=== PATIENT | female | born 1965 | race Caucasian/White ===

== ENCOUNTER 2018-12-06 00:43 | Observation (INO) | payer OTHER ==
--- OUTSIDE RECORDS SUMMARY | 2018-12-06 00:45 | XMS REPORT ---
:1965 Author Organization [facility] Address [address] [place] [address] Care Team Providers Name Role Phone Unavailable Unavailable Unavailable Problems This patient has no known problems. Allergies, Adverse Reactions, Alerts This patient has no known allergies or adverse reactions. Medications This patient has no known medications. Results Test Description Test Time Test Comments Text Results Atomic Results Result Comments SCR MAMM BILATERAL MICHAEL 2018-11-19 15:17:50 - SCR MAMM BILATERAL MICHAEL CAD CAD DIGITAL DIGITALBILATERAL FIRST EVER DIGITAL SCREENING MAMMOGRAM 3D/2D WITH CAD: 11/13/2018CLINICAL: Asymptomatic. Digital breast tomosynthesis was performed in addition to routine CC and MLO views. Current mammographic images were evaluated by either a [employer] M-Vu or a [employer] ImageChecker CAD (computer aided detection system). No prior exams were available for comparison. This is a baseline exam.The tissue of both breasts is predominantly fatty. There are benign calcifications in both breasts. There also is a benign-appearing focal asymmetry in the posterolateral, left breast, 8-9 cm from the nipple. No suspicious mass, architectural distortion, malignant type calcification, or lymph node abnormality detected. IMPRESSION: BENIGNThere is no mammographic evidence of malignancy. Resume annual screening mammography in one year. Anatoly Gunderson M.D. rb/:11/19/2018 15:17:50 Attending Technologist: Selma Walton MM, [facility] [employer] MammographyImaging Technologist: Zamzam Mcelroy MM, [facility] [place] [employer] Mammographyletter sent: BIRADS 1-2 Normal Mammogram BI-RADS: 2 Benign
[2018-12-06] MEDS ORDERED: LIDOCAINE VISCOUS 2% SOLN 15 ML UDC ONE (01:18)
[2018-12-06] MEDS ORDERED: MAGNE/ALUM HYDROXD 30 ML UCUP ONE (01:18)
[2018-12-06 01:20] LABS: Absolute Lymphocytes (CBC) 2.3 K/uL (0.7-4.9); Absolute Monocytes 0.6 K/uL (0.1-1.3); Absolute Neutrophil 3.6 K/uL (1.8-8.0); Basophils % 0.7 % (0-1.3); Eosinophils % 1.8 % (0-4.4); Hematocrit 41.4 % (36.0-45.0); Lymphocytes % 34.4 % (15.3-44.8); MPV 8.1 fL (7.6-11.3); Monocytes % 8.9 % (3.3-12.3); RBC Red Blood Cell Count 4.74 M/uL (3.86-4.86)
[2018-12-06 01:39] LABS: ALT/SGPT 59 U/L (12-78); AST/SGOT 38 U/L (15-37); Albumin 3.5 g/dL (3.4-5.0); Alkaline Phosphatase 73 U/L (45-117); BUN Blood Urea Nitrogen 17 mg/dL (7-18); Bicarbonate 25 mmol/L (21-32); Bilirubin Direct < 0.1 mg/dL (0-0.2); Bilirubin Total 0.2 mg/dL (0.2-1.0); Glucose Level 101 mg/dL (74-106); NT PRO-BNP 244 pg/mL (<125); Potassium 3.9 mmol/L (3.5-5.1); Protein, Total 7.7 g/dL (6.4-8.2); Sodium Level 137 mmol/L (136-145); Troponin (Emerg Dept Use Only) < 0.02 ng/mL (0.0-0.045)
--- NOTE | 2018-12-06 02:49 | ER ---
Nurse's Notes [facility] Name: Xuan Peacock Age: 53 yrs Sex: Female : 1965 Arrival Date: 12/06/2018 Time: 00:45 Bed 20 Private MD: Diagnosis: Chest pain, unspecified Presentation: 12/06 00:48 Presenting complaint: Patient states: that at 0000 she woke up with chest pain that fc felt like indigestion along with shortness of breath and nausea. States that she feels like she has chest pressure now. Transition of care: patient was not received from another setting of care. Onset of symptoms was December 06, 2018 at 00:00. Risk Assessment: Do you want to hurt yourself or someone else? Patient reports no desire to harm self or others. Initial Sepsis Screen: Does the patient meet any 2 criteria? No. Patient's initial sepsis screen is negative. Does the patient have a suspected source of infection? No. Patient's initial sepsis screen is negative. Care prior to arrival: Medication(s) given: ASA, 81 mg, x 4, at 0015. 00:48 Method Of Arrival: Ambulatory fc 00:48 Acuity: MARTHA 3 fc Historical: - Allergies: 01:07 No Known Allergies; fc - Home Meds: 01:07 Unable to obtain [Active]; fc - PMHx: 01:07 Hypertension; fc - PSHx: 01:07 Cholecystectomy; Ear surg; fc - Immunization history:: Last tetanus immunization: unknown. - Social history:: Smoking status: Patient/guardian denies using tobacco. - Family history:: not pertinent. - Ebola Screening: : Patient negative for fever greater than or equal to 101.5 degrees Fahrenheit, and additional compatible Ebola Virus Disease symptoms Patient denies exposure to infectious person Patient denies travel to an Ebola-affected area in the 21 days before illness onset. - Hospitalizations: : No recent hospitalization is reported. Screenin:48 Abuse screen: Denies threats or abuse. Nutritional screening: No deficits noted. fc Tuberculosis screening: No symptoms or risk factors identified. Fall Risk None identified. Assessment: 01:19 General: Appears in no apparent distress. uncomfortable, Behavior is calm, cooperative, tl2 appropriate for age. Pain: Complains of pain in chest Pain does not radiate. Pain currently is 8 out of 10 on a pain scale. Quality of pain is described as pressure, Pain began 1 hour ago. Neuro: Level of Consciousness is awake, alert, obeys commands, Oriented to person, place, time, situation. Cardiovascular: Chest pain is described as diffuse, quality is pressure, is located in anterior substernal area began 1 hour prior to arrival. Respiratory: Airway is patent Respiratory effort is even, unlabored, Respiratory pattern is regular, symmetrical. GI: Reports nausea. : No signs and/or symptoms were reported regarding the genitourinary system. Derm: Skin is pink, warm \T\ dry. 01:45 Reassessment: Patient appears in no apparent distress at this time. No changes from tl2 previously documented assessment. Patient and/or family updated on plan of care and expected duration. Pain level reassessed. Patient is alert, oriented x 3, equal unlabored respirations, skin warm/dry/pink. awaiting lab results. Vital Signs: 00:48 BP 157 / 80; Pulse 77; Resp 18; Temp 97.6(O); Pulse Ox 98% on R/A; Weight 90.72 kg (R); fc Height 5 ft. 3 in. (160.02 cm) (R); Pain 8/10; 01:45 BP 158 / 81; Pulse 71; Resp 18; Pulse Ox 100% on R/A; tl2 02:57 BP 122 / 65; Pulse 79; Resp 13; Pulse Ox 98% on R/A; tl2 03:58 BP 117 / 79; Pulse 63; Resp 12; Pulse Ox 98% on R/A; tl2 00:48 Body Mass Index 35.43 (90.72 kg, 160.02 cm) Vitals: 03:58 Cardiac Rhythm Assessment Sinus rhythm. tl2 ED Course: 00:45 Patient arrived in ED. tl2 00:45 Olegario Leon MD is Attending Physician. rn 00:48 Arm band placed on Patient placed in an exam room, on a stretcher. fc 00:48 Patient has correct armband on for positive identification. Placed in gown. Bed in low fc position. Call light in reach. radiation monitor on. Pulse ox on. NIBP on. 00:48 No provider procedures requiring assistance completed. fc 01:04 Triage completed. fc 01:06 Adrienne Ortez RN is Primary Nurse. tl2 01:19 Inserted saline lock: 20 gauge in right antecubital area, using aseptic technique. tl2 Blood collected. 01:31 X-ray completed. Portable x-ray completed in exam room. Patient tolerated procedure sg4 well. 01:31 XRAY Chest (1 view) In Process Unspecified. EDMS 02:48 Lenard Santos MD is Hospitalizing Provider. rn 05:50 Patient admitted, IV remains in place. tl2 Administered Medications: 01:19 Drug: GI Cocktail without - (Maalox Suspension 30 ml, Lidocaine Liquid 2 % 15 tl2 ml) Route: PO; 01:44 Follow up: Response: Pain is unchanged, physician notified tl2 02:57 Drug: Nitroglycerin 0.4 mg Route: Sublingual; tl2 03:00 Follow up: Response: No adverse reaction; Pain is decreased tl2 Outcome: 02:48 Decision to Hospitalize by Provider. rn 05:49 Admitted to ER Hold. Please see [facility] for further documentation. tl2 05:49 Condition: stable 05:49 Discharge instructions given to patient, Instructed on the need for admit. 08:03 Patient left the ED. em Signatures: Dispatcher [employer] EDID Gina Bacon RN RN Jose Bradley, ORTHODONTIST ASSISTANT ORTHODONTIST ASSISTANT em Olegario Leon MD MD rn Knox, Taylor, RN RN tl2 Judith Archibald sg4
--- NOTE | 2018-12-06 02:49 | EDPHYS ---
Physician Documentation [facility] Name: Xuan Peacock Age: 53 yrs Sex: Female : 1965 Arrival Date: 12/06/2018 Time: 00:45 Bed 20 Private MD: ED Physician Olegario Leon HPI: 12/06 00:54 This 53 yrs old Female presents to ER via Unassigned with complaints of chest rn pain. 00:54 The patient or guardian reports chest pain that is located primarily in the substernal rn area. Onset: yesterday. The pain does not radiate. The chest pain is described as a heaviness, a pressure. Modifying factors: The symptoms are alleviated by nothing. the symptoms are aggravated by nothing. Severity of pain: At its worst the pain was moderate in the emergency department the pain is unchanged. The patient has not experienced similar symptoms in the past. Reports chest pain, feels like indigestion, pressure, no radiation, no fever/cough, began approx 20 hours ago, intermittent, went away and then returned about an hour ago, assoc with nausea and sob. . Historical: - Allergies: 01:07 No Known Allergies; fc - Home Meds: 01:07 Unable to obtain [Active]; fc - PMHx: 01:07 Hypertension; fc - PSHx: 01:07 Cholecystectomy; Ear surg; fc - Immunization history:: Last tetanus immunization: unknown. - Social history:: Smoking status: Patient/guardian denies using tobacco. - Family history:: not pertinent. - Ebola Screening: : Patient negative for fever greater than or equal to 101.5 degrees Fahrenheit, and additional compatible Ebola Virus Disease symptoms Patient denies exposure to infectious person Patient denies travel to an Ebola-affected area in the 21 days before illness onset. - Hospitalizations: : No recent hospitalization is reported. ROS: 00:54 Constitutional: Negative for fever, chills, and weight loss, Eyes: Negative for injury, rn pain, redness, and discharge, Cardiovascular: Negative for palpitations, and edema, Respiratory: Negative for cough, wheezing, and pleuritic chest pain, Abdomen/GI: Negative for abdominal pain, diarrhea, and constipation, MS/Extremity: Negative for injury and deformity, Skin: Negative for injury, rash, and discoloration, Neuro: Negative for headache, weakness, numbness, tingling, and seizure. Exam: 00:54 Constitutional: This is a well developed, well nourished patient who is awake, alert, rn appears anxious Head/Face: Normocephalic, atraumatic. Eyes: Pupils equal round and reactive to light, extra-ocular motions intact. Cardiovascular: Regular rate and rhythm with a normal S1 and S2. No gallops, murmurs, or rubs. No JVD. No pulse deficits. Respiratory: Lungs have equal breath sounds bilaterally, clear to auscultation Abdomen/GI: soft, non-tender Back: No spinal tenderness. No costovertebral tenderness. Full range of motion. MS/ Extremity: Pulses equal, no cyanosis. Neurovascular intact. Full, normal range of motion. Equal circumference. Neuro: Awake and alert, GCS 15, oriented to person, place, time, and situation. Cranial nerves II-XII grossly intact. Motor strength 5/5 in all extremities. Sensory grossly intact. Vital Signs: 00:48 BP 157 / 80; Pulse 77; Resp 18; Temp 97.6(O); Pulse Ox 98% on R/A; Weight 90.72 kg (R); fc Height 5 ft. 3 in. (160.02 cm) (R); Pain 8/10; 01:45 BP 158 / 81; Pulse 71; Resp 18; Pulse Ox 100% on R/A; tl2 02:57 BP 122 / 65; Pulse 79; Resp 13; Pulse Ox 98% on R/A; tl2 03:58 BP 117 / 79; Pulse 63; Resp 12; Pulse Ox 98% on R/A; tl2 00:48 Body Mass Index 35.43 (90.72 kg, 160.02 cm) MDM: 00:46 Patient medically screened. rn 00:53 The patient was not given aspirin in the Emergency Department. Patient reports taking rn aspirin within the past 24 hours. 02:47 Differential diagnosis: acute myocardial infarction, acute pericarditis, rn costochondritis, esophagitis, gastritis, gastroesophageal reflux disease (GERD), pleurisy, pneumonia, pneumothorax, stable angina, unstable angina. Data reviewed: vital signs, nurses notes, lab test result(s), EKG, radiologic studies, plain films, and as a result, I will admit patient. Counseling: I had a detailed discussion with the patient and/or guardian regarding: the historical points, exam findings, and any diagnostic results supporting the discharge/admit diagnosis, lab results, radiology results, the need for further work-up and treatment in the hospital. Response to treatment: the patient's symptoms have mildly improved after treatment, and as a result, I will admit patient. Admission orders: after a detailed discussion of the patient's condition and case, the admit orders are written by me. 12/06 00:52 Order name: Basic Metabolic Panel; Complete Time: rn 12/06 00:52 Order name: CBC with Diff; Complete Time: rn 12/06 00:52 Order name: LFT's; Complete Time: rn 12/06 00:52 Order name: NT PRO-BNP; Complete Time: rn 12/06 00:52 Order name: Troponin (emerg Dept Use Only); Complete Time: rn 12/06 05:18 Order name: Lipid Profile; Complete Time: 05:59 EDMS 12/06 00:52 Order name: XRAY Chest (1 view) rn 12/06 00:52 Order name: EKG; Complete Time: 00:54 rn 12/06 00:52 Order name: Cardiac monitoring; Complete Time: : rn 12/06 00:52 Order name: EKG - Nurse/Tech; Complete Time: : rn 12/06 00:52 Order name: IV Saline Lock; Complete Time: : rn 12/06 00:52 Order name: Labs collected and sent; Complete Time: : rn 12/06 00:52 Order name: O2 Per Protocol; Complete Time: rn 12/06 00:52 Order name: O2 Sat Monitoring; Complete Time: 01:06 rn Administered Medications: 01:19 Drug: GI Cocktail without - (Maalox Suspension 30 ml, Lidocaine Liquid 2 % 15 tl2 ml) Route: PO; 01:44 Follow up: Response: Pain is unchanged, physician notified tl2 02:57 Drug: Nitroglycerin 0.4 mg Route: Sublingual; tl2 03:00 Follow up: Response: No adverse reaction; Pain is decreased tl2 Disposition: 12/06/18 02:48 Hospitalization ordered by Lenard Santos for Observation. Preliminary diagnosis is Chest pain, unspecified. - Bed requested for Telemetry/MedSurg (observation). - Status is Observation. em - Condition is Stable. - Problem is new. - Symptoms have improved. UTI on Admission? No Signatures: Dispatcher [employer] Camille Hu, RN RN kl Gina Bacon RN RN fc Jose Diaz, ELEMENTARY SCIENCE TEACHER ELEMENTARY SCIENCE TEACHER em Olegario Leon MD MD rn Knox, Taylor RN RN tl2 Corrections: (The following items were deleted from the chart) 03:57 02:48 Hospitalization Ordered by Lenard Santos MD for Observation. Preliminary kl diagnosis is Chest pain, unspecified. Bed requested for Telemetry/MedSurg (observation). Status is Observation. Condition is Stable. Problem is new. Symptoms have improved. UTI on Admission? No. rn 04:20 03:57 12/06/2018 02:48 Hospitalization Ordered by Lenard Santos MD for Observation. kl Preliminary diagnosis is Chest pain, unspecified. Bed requested for Telemetry/MedSurg (observation). Status is Observation. Condition is Stable. Problem is new. Symptoms have improved. UTI on Admission? No. kl 04:21 04:20 12/06/2018 02:48 Hospitalization Ordered by Lenard Santos MD for Observation. Preliminary diagnosis is Chest pain, unspecified. Bed requested for Telemetry/MedSurg (observation). Status is Observation. Condition is Stable. Problem is new. Symptoms have improved. UTI on Admission? No. kl 06:42 04:21 12/06/2018 02:48 Hospitalization Ordered by Lenard Santos MD for Observation. kl Preliminary diagnosis is Chest pain, unspecified. Bed requested for [facility] ER HOLD. Status is Observation. Condition is Stable. Problem is new. Symptoms have improved. UTI on Admission? No. fc 08:03 06:42 12/06/2018 02:48 Hospitalization Ordered by Lenard Santos MD for Observation. em Preliminary diagnosis is Chest pain, unspecified. Bed requested for Telemetry/MedSurg (observation). Status is Observation. Condition is Stable. Problem is new. Symptoms have improved. UTI on Admission? No. kl
[2018-12-06] MEDS ORDERED: NITROGLYCERIN 0.4 MG/TAB SL ONE (03:05)
--- NOTE | 2018-12-06 03:30 | P.HP ---
Certification for Inpatient Patient admitted to: Observation With expected LOS: <2 Midnights Practitioner: I am a practitioner with admitting privileges, knowledge of patient current condition, hospital course, and medical plan of care. Services: Services provided to patient in accordance with Admission requirements found in Title 42 Section 412.3 of the Code of Federal Regulations Patient History Date of Service: 12/06/18 Reason for admission: chest pain History of Present Illness: Ms Peacock is an 53 years old woman with history of HTN, who had an episoe of chest pain yesterday morning, she describe a heavy feeling in substernal area, without radiation, 6/10 of intensity, associated with SOB, nausea and diaphoresis, lasting for few hours, relieving by itself. She assumed the pain as gastric reflux. Last night, she has another episode of chest pain, with similar characteristics, but at this time she came to ED for evaluation. The pain subsided in ED after nitro SL administration. Initial trop I is negative, EKG shows SR with long QT interval, without ST-T abnormalities. At my encounter the patient was chest pain free. Allergies No Known Allergies Allergy (Unverified 01/26/17 17:30) Home medications list reviewed: Yes - Past Medical/Surgical History -: HTN -: Cholecystectomy -: ear surgery - Family History Mother -: Heart disease - Social History Smoking Status: Former smoker Alcohol use: No CD- Drugs: No Place of Residence: Home Review of Systems 10-point ROS is otherwise unremarkable Physical Examination - Physical Exam General: Alert, In no apparent distress HEENT: Atraumatic, PERRLA, Mucous membr. moist/pink, EOMI, Sclerae nonicteric Neck: Supple, 2+ carotid pulse no bruit, No LAD, Without JVD or thyroid abnormality Respiratory: Clear to auscultation bilaterally, Normal air movement Cardiovascular: Regular rate/rhythm, Normal S1 S2 Gastrointestinal: Normal bowel sounds, No tenderness Musculoskeletal: No tenderness Integumentary: No rashes Neurological: Normal gait, Normal speech, Normal strength at 5/5 x4 extr, Normal tone, Normal affect Lymphatics: No axilla or inguinal lymphadenopathy - Studies Laboratory Data (last 24 hrs) 12/06/18 01:13: WBC 6.6, Hgb 13.6, Hct 41.4, Plt Count 319 12/06/18 01:13: Sodium 137, Potassium 3.9, BUN 17, Creatinine 0.79, Glucose 101 , Total Bilirubin 0.2, AST 38 H, ALT 59, Alkaline Phosphatase 73 Assessment and Plan - Problems (Diagnosis) (1) Chest pain Current Visit: Yes Status: Acute Qualifiers: Chest pain type: precordial pain Qualified Code(s): R07.2 - Precordial pain (2) HTN (hypertension) Current Visit: Yes Status: Acute Qualifiers: Hypertension type: essential hypertension Qualified Code(s): I10 - Essential (primary) hypertension - Plan The patient will be admitted to the hospital due to typical chest pain relieving with Nitro. Will order ECHO, full dose Lovenox, ASA, statins, consult Cardiology team. - Advance Directives Does patient have a Living Will: No Does patient have a Durable POA for Healthcare: No - Code Status/Comfort Care Code Status Assessed: Yes Code Status: Full Code
[2018-12-06] MEDS ORDERED: ACETAMINOPHEN 500 MG TAB PO PRN (04:25)
[2018-12-06] MEDS ORDERED: ONDANSETRON 4 MG/2 ML VIAL IV PRN (04:25)
[2018-12-06] MEDS: NITROGLYCERIN 0.4 MG/TAB SL PRN ×3 (04:43→08:30)
[2018-12-06 05:45] VITALS: BMI 35.4
[2018-12-06] MEDS: ASPIRIN 81 MG CHEWABLE TABLET PO SCH (08:12)
[2018-12-06] MEDS: ENOXAPARIN 80 MG/0.8 ML SQ SCH ×2 (08:13→21:32)
[2018-12-06] MEDS ORDERED: INFLUENZA VACCINE (for 3y+) 0.5 ML DOSE IMVAC ONE (09:00)
--- NOTE | 2018-12-06 11:59 | RAD REPORT ---
EXAM DESCRIPTION: RAD - Chest Single View - 12/06/2018 1:31 am CLINICAL HISTORY: CHEST PAIN Chest pain. COMPARISON: Chest Single View dated 11/01/2016 FINDINGS: Portable technique limits examination quality. The lungs are grossly clear. The heart is normal in size. No displaced fractures. IMPRESSION: No acute intrathoracic process suspected.
--- NOTE | 2018-12-06 16:27 | EKG ---
Test Date: 2018-12-06 Test Time: 00:56:15 Grain Trader: KARY MEASUREMENT RESULTS: Intervals: Rate: 73 [place]: 146 QRSD: 74 QT: 438 QTc: 482 [place]: P: 45 [place]: 146 QRS: 32 T: 39 INTERPRETIVE STATEMENTS: Normal sinus rhythm Prolonged QT Abnormal ECG Compared to ECG 11/01/2016 20:30:21 Prolonged QT interval now present Electronically Signed On 12-06-18 16:27:00 [employer] by Daniel Rothman
--- NOTE | 2018-12-06 16:29 | CON ---
CARDIOLOGY CONSULT History Of Present Illness: Ms. Peacock is 53. She came to the hospital because of nausea, vomiting, and chest pain. She had a spell about a month ago, seemed to get over it; another one yesterday, got over it; and then when it recurred around midnight, she came to the ER. Since being in the ER and i n our hospital, she has had normal enzymes, normal EKGs, and the symptoms have resolved. The patient has never had myocardial infarction, stroke, or vascular disease before. She is treated for hyperte nsion. She does not have diabetes, dyslipidemia, any history of tobacco use. Home Medications: Amlodipine. No other meds. Physical Examination: General: She is alert, oriented, pleasant, 5 feet 3 inches, 200 pounds, non-centripetal obesity. HEENT: Normal. Lungs: Clear. Heart: Normal. Abdomen: Soft. Extremities: Normal. Laboratory Data: Reveals a fasting blood sugar of 101, an HDL cholesterol of 72, LDL cholesterol of 87. Assessment/plan: I think the patient is very low risk patient for having heart disease. Since she i s admitted, we will do an echocardiogram and stress test. If those are normal, she can be discharged. MARTIN Voice ID: [id number] Report ID: [id number]
[2018-12-06] MEDS: AMLODIPINE 5 MG TAB PO SCH (18:43)
[2018-12-06] MEDS ORDERED: ATORVASTATIN 80 MG TAB PO SCH (21:00)
--- NOTE | 2018-12-06 21:15 | PN ---
Date of Progress Note: 12/06/2018 Subjective: The patient is seen and examined. Chart reviewed and case discussed with RN. The patie nt states her chest pain is improved. No other complaints. Medications: List reviewed. Physical Examination: Vital Signs: Temperature 97.9, heart rate 58, blood pressure 126/69, respirations 18, O2 97% on room air. General: Awake, alert, oriented x3, no acute distress. Obese female. CV: S1, S2. Regular rate and rhythm. Peripheral pulses present. Respiratory: Moving air well bilaterally. No wheezing or stridor. Gastrointestinal: Abdomen is soft, nontender, nondistended. Positive bowel sounds. Extremities: No clubbing, cyanosis, or edema. Neurologic: Nonfocal. Laboratory Data: Sodium 137, potassium 3.9, chloride 106, CO2 25, BUN 17, creatinine 0.79, glucose 1 01, calcium 8.5. Troponin less than 0.02, triglycerides 59, and cholesterol 171, LDL 87, HDL 72. WB C 6.6, H and H 13.6, 41.4, platelets 319. Chest x-ray, personally reviewed, shows no acute intrathor acic process identified. Assessment And Plan: A 53-year-old female with: 1.Chest pain. We will continue with chest pain guidelines. Stress test scheduled for the morning. Appreciate Dr. Rothman' input. 2.Essential hypertension, stable. 3.Obesity, BMI is greater than 30 due to excess calories. 4.Gastrointestinal and deep venous thrombosis prophylaxis with PPI and Lovenox. PLAN: Continue to monitor. Follow up with stress test in a.m. /DAI Voice ID: [id number] Report ID: [id number]
[2018-12-06 22:49] LABS: Urine Appearance CLEAR; Urine Bilirubin NEGATIVE (NEG); Urine Blood NEGATIVE (NEG); Urine Color YELLOW; Urine Glucose NEGATIVE (NEG); Urine Protein NEGATIVE (NEG); Urine Specific Gravity <=1.005 (1.005-1.030); Urine Urobilinogen 0.2 mg/dL (0.2-1.0)
[2018-12-06 22:55] LABS: Urine Microscopic Reflex NO UMIC
[2018-12-07 03:56] VITALS: O2SAT 94
[2018-12-07] MEDS ORDERED: REGADENOSON 0.4 MG/5 ML SYR IV ONE (07:40)
[2018-12-07] MEDS: ENOXAPARIN 80 MG/0.8 ML SQ SCH (08:13)
[2018-12-07] MEDS: ASPIRIN 81 MG CHEWABLE TABLET PO SCH (08:13)
[2018-12-07] MEDS: AMLODIPINE 5 MG TAB PO SCH (08:14)
[2018-12-07] MEDS ORDERED: AMLODIPINE 5 MG TAB PO SCH (09:00)
--- NOTE | 2018-12-07 14:07 | RAD REPORT ---
EXAM DESCRIPTION: NM - Rest Stress Cardiac Imaging - 12/07/2018 2:02 pm CLINICAL HISTORY: Chest pain. COMPARISON: None. TECHNIQUE: The patient was administered approximately 10mCi of Tc 99m Sestamibi prior to resting SPE CT imaging of the heart. The patient was then administered approximately 30 mCi of Tc 99m Sestamibi f ollowing exercise or pharmacologic stress. Multiplanar SPECT images were reviewed. FINDINGS: There is uniformity of radiotracer activity involving the entire left ventricular myocard ium. The left ventricular ejection fraction equals 58% IMPRESSION: Negative for a myocardial perfusion defect
[2018-12-07 14:40] VITALS: BP 132/60; TEMP 97.3
--- NOTE | 2018-12-07 15:12 | ECHO ---
HEIGHT: 5 ft 3 in WEIGHT: 200 lb 0.054 oz DATE OF STUDY: 12/07/[address]: Lenard Narayan MD 2-DIMENSIONAL: YES M.MODE: YES DOPPLER: YES COLOR FLOW: YES TDS: NO PORTABLE: NO DEFINITY: NO BUBBLE STUDY: NO DIAGNOSIS: CHEST PAIN CARDIAC HISTORY: CATHERIZATION: NO SURGERY: NO PROSTHETIC VALVE: NO PACEMAKER: NO MEASUREMENTS (cm) DIASTOLIC (NORMALS) SYSTOLIC (NORMALS) IVSd 1.0 (0.6-1.2) LA Diam 3.4 (1.9-4.0) LVEF 59% LVIDd 4.7 (3.5-5.7) LVIDs 3.2 (2.0-3.5) %FS 31% LVPWd 1.1 (0.6-1.2) Ao Diam 2.9 (2.0-3.7) 2 DIMENSIONAL ASSESSMENT: RIGHT ATRIUM: NORMAL LEFT ATRIUM: NORMAL RIGHT VENTRICLE: NORMAL LEFT VENTRICLE: NORMAL TRICUSPID VALVE: NORMAL MITRAL VALVE: NORMAL PULMONIC VALVE: NORMAL AORTIC VALVE: NORMAL PERICARDIAL EFFUSION: NONE AORTIC ROOT: NORMAL LEFT VENTRICULAR WALL MOTION: NORMAL DOPPLER/COLOR FLOW: MILD MITRAL REGURGITATION. COMMENTS: NORMAL 2D ECHOCARDIOGRAM. MILD MITRAL REGURGITATION. TECHNOLOGIST: Atiya TARIQ
--- NOTE | 2018-12-07 15:25 | TREADPHA ---
DX: CHEST PAIN Date of Study: 12/07/2018 Ht: 5 3 Wt: 200 lb 0.054 oz Consulting Physician: DIANA MEDICATIONS: TYLENOL, NORVASC, LIPITOR, LOVENOX, NITROSTAT HISTORY: 53 YEAR OLD FEMALE WITH COMPLAINTS OF CHEST PAIN. HISTORY OF HYPERTENSION, NON SMOKER, NON DRINKER. PHYSICIAL EXAMINATION: RESTING B.P.: 148/76 RESTING H.R.: 73 RESTING EKG: SINUS. LEFT VENTRICULAR HYPERTROPHY, OTHERWISE NORMAL. PROTOCOL: LEXISCAN EXERCISE TIME: 3:30 B.P. AT PEAK STRESS: 132/67 IMPRESSION: LEXISCAN INJECTED. CARDIOLITE INJECTED PER PROTOCOL. SEE NUCLEAR MEDICINE REPORT. NO SUPRAVENTRICULAR TACHYCARDIA. NO VENTRICULAR TACHYCARDIA. NO PREMATURE ATRIAL COMPLEXES. NO PREMATURE VENTRICULAR COMPLEXES. PATIENT REPORTED CHEST PRESSURE 6/10 PRIOR RO PROCEDURE. PRESSURE STAYED THE SAME THROUGHOUT PROCEDURE. NON DIAGNOSTIC EKG DURING LEXISCAN INJECTED.
--- NOTE | 2018-12-08 05:41 | DS ---
Date of Discharge: 12/07/2018 Consultants: Dr. Rothman with Cardiology. Procedures: Cardiac stress test on 12/07/2018. Cardiac stress test was negative for any myocardial perfusion defects. Discharge Diagnoses: 1. Atypical chest pain. Acute coronary syndrome ruled out. 2. Essential hypertension, stable. 3. Obesity, body mass index greater than 30. Hospital Course: The patient is a 53-year-old female with past medical history of hypertension, comes in with chest pain. The patient was admitted to rule out acute coronary syndrome. Cardiac enzymes and EKG were normal. Did not show any acute ST elevation. The patient was seen by Cardiology, Dr. Rothman, and recommended cardiac stress testing which was negative. Did not show any myocardial perfusion defects. Her ejection fraction was 58%. The patient's symptoms resolved. She was then cleared for discharge and was sent home in a stable condition. Medications: As per medication reconciliation list. Followup: Follow up with primary care physician in 2 to 3 days. Follow up with guide setter, Dr. Rothman, in 2 weeks. Return to ER for worsening condition. Diet: Heart healthy. Activity: As tolerated. Medications: As per medication reconciliation list. Physical Examination: General: Awake, alert, and oriented x3. No acute distress. CV: S1, S2. No murmurs. Respiratory: Moving air well bilaterally. Abdomen: Abdomen is soft, nontender, nondistended. Positive bowel sounds. Extremities: No clubbing, cyanosis, or edema. Neurologic: Nonfocal. SA/MODL Voice ID: [id number] Report ID: [id number] MORIAH
== END 2018-12-07 16:30 | disposition home or self-care (01) ==
LOC: ER 00:43 → ERHOLD 03:17 → 2ND 07:50
PROVIDERS: ADMIT Internal Medicine; ATTEND Internal Medicine
DX: R07.89 Other chest pain (principal); I10 Essential (primary) hypertension; E66.9 Obesity, unspecified; Z68.35 Body mass index [BMI] 35.0-35.9, adult
CPT/HCPCS: 36415; 71045; 78452; 80048; 80061; 80076; 81003; 83880; 84484; 85025; 93005; 93017; 93306; 99285; A9500; G0378; J1650; J2785

== ENCOUNTER 2019-07-27 08:20 | Day surgery (SDC) | payer OTHER ==
--- OUTSIDE RECORDS SUMMARY | 2019-07-27 08:22 | XMS REPORT ---
:1965 [facility] Address [address] [place] [address] Care Team Providers Name Role Phone Unavailable [...] mammographic images were evaluated by either a [employer] M-Vu or a [employer] ImageChecker CAD (computer aided detection system). No [...] 15:17:50 Attending Technologist: Selma Walton MM, [employer] MammographyImaging Technologist: Zamzam Mcelroy MM, [facility] [place] [employer] Mammographyletter sent: BIRADS 1-2 Normal Mammogram BI-RADS: 2 Benign
--- OUTSIDE RECORDS SUMMARY | 2019-07-27 08:22 | XMS REPORT | Summary of Care ---
:1965 Author Organization [facility] - Health Address [address] [place] [id number] Care Team Providers Name Role Phone Pcp, Patient Does Not Have A Primary Care Provider Encounter Details Date Type Department Care Team Description 07/03/2019 Orders Only [facility] Doctor Unassigned, No [address] [facility] [place] [address] [place] [id number] Allergies No Known Allergiesdocumented as of this encounter (statuses as of 07/03/2019) Medications Medication Sig Dispensed Refills Start Date End Date Status promethazine-codeine Take 5 mL by 120 mL 0 11/09/2017 Active 6.25-10 mg/5 mL syrup mouth 4 (four) times daily as needed for Cough. acetaminophen-codeine Take 1 tablet 16 tablet 0 08/02/2018 Active 300-30 mg tablet by mouth every 8 (eight) hours as needed for Pain (scale 4-6). cyclobenzaprine 10 mg Take 1 tablet 16 tablet 0 08/02/2018 Active tablet by mouth 3 (three) times daily as needed for Muscle Spasms (pain). erythromycin 5 mg/gram Place 0.5 1 g 0 02/03/2019 Active (0.5 %) ophthalmic Inches in left ointmentIndications: eye at bedtime. Left-sided Willard's palsy dextran 70-hypromellose Place 1 Drop in 30 mL 0 02/03/2019 Active (TEARS NATURALE II) left eye 4 ophthalmic (four) times solutionIndications: daily as needed Left-sided Willard's palsy (Dryness). documented as of this encounter (statuses as of 07/03/2019) Active Problems No known active problemsdocumented as of this encounter (statuses as of 2018) Social History Tobacco Use Types Packs/Day Years Used Date Never Assessed Sex Assigned at Date Recorded Not on file Job Start Date Occupation Industry Not on file Not on file Not on file Travel History Travel Start Travel End No recent travel history available. documented as of this encounter Last Filed Vital Signs Not on filedocumented in this encounter Plan of Treatment Health Maintenance Due Date Last Done Comments DTaP,Tdap,and Td Vaccines (1 - 1986 Tdap) PAP SMEAR 1988 MAMMOGRAM 2007 COLONOSCOPY 2017 Zoster Recombinant Vaccine 2017 (SHINGRIX) (1 of 2) INFLUENZA VACCINE 07/25/2019 PNEUMOCOCCAL 0-64 YEARS COMBINED Aged Out No longer eligible based on SERIES patient's age to complete this topic documented as of this encounter Procedures Procedure Name Priority Date/Time Associated Diagnosis Comments CONSENT/REFUSAL FOR Routine 07/03/2019 3:45 PM CDT DIAGNOSIS AND TREATMENT documented in this encounter Results Not on filedocumented in this encounter Insurance Payer Benefit Plan / Subscriber ID Effective Dates Phone Address Type Group HIM [id number] 2018-Present PPO [id number] ACTED RACTED documented as of this encounter
--- OUTSIDE RECORDS SUMMARY | 2019-07-27 08:23 | XMS REPORT | Summary of Care ---
:1965 Author Organization [facility] - Health Address [address] [place] [address] Care Team Providers Name Role Phone Pcp, Patient Does Not Have A Primary Care Provider Reason for Visit Reason Comments Transition Of Care Encounter Details Date Type Department Care Team Description 07/07/2019 Transition of Care [facility] Kathryn Cao, Transition Of Care [facility]- RN [address] [id number] Allergies No Known Allergiesdocumented as of this encounter (statuses as of 07/07/2019) Medications Medication Sig Dispensed Refills Start Date [...] daily as needed Left-sided Willard's palsy (Dryness). SERTraline 50 mg tablet Take 50 mg by 0 Active mouth daily. omeprazole 20 mg capsule Take 20 mg by 0 Active mouth daily. amLODIPine 10 mg tablet Take 10 mg by 0 Active mouth daily. lisinopril 5 mg tablet Take 5 mg by 0 Active mouth daily. documented as of this encounter (statuses as of 07/07/2019) Active Problems Problem Noted Date Pancreatitis, acute 07/03/2019 Obesity (BMI 30-39.9) 07/03/2019 documented as of this encounter (statuses as of 07/07/2019) Social History Tobacco Use Types Packs/Day Years Used Date Former Smoker Smokeless Tobacco: Never Used Comments: Stopped smoking 2012 Sex Assigned at Date Recorded Not on [...] this topic documented as of this encounter Results Not on filedocumented in this encounter Insurance Payer Benefit Plan / Subscriber ID Effective Dates Phone Address Type Group HIM [id number] 2018-Present PPO [id number] ACTED RACTED documented as of this encounter
--- OUTSIDE RECORDS SUMMARY | 2019-07-27 08:23 | XMS REPORT | Summary of Care ---
:1965 Author Organization [facility] - [facility] Address [address] [place] [address] Care Team Providers Name Role Phone Pcp, Patient Does Not Have A Primary Care Provider Reason for Referral (Routine) Status Reason Specialty Diagnoses / Procedures Referred By Referred To Contact Contact New Request Diagnoses Idiopathic acute pancreatitis without infection or necrosis Sadiq Shaver, Syst , Procedures Discharge Follow-up: PCP REFERRING/PCP PROV NOT IN SYST; 1 Week MBBS Referring/Pcp [address] [place] [address] [place] [address] MRI/CAT Scan (STAT) Status Reason Specialty Diagnoses / Referred By Referred To Procedures Contact Contact New Request Diagnostic Diagnoses Epigastric abdominal pain Feroz Diaz, Radiology Procedures CT ABDOMEN PELVIS W CONTRAST [address] [place], [place] [id number] MRI/CAT Scan (STAT) Status Reason Specialty Diagnoses / Referred By Referred To Procedures Contact Contact New Request Diagnostic Diagnoses Epigastric abdominal pain Feroz Diaz, Radiology Procedures CT ABDOMEN PELVIS W CONTRAST [address] [place] [id number] Reason for Visit Reason Comments Epigastric Pain Auth/Cert Status Reason Specialty Diagnoses / Referred By Referred To Procedures Contact Contact Emergency Medicine [facility] Emergency Dept [address] [place] [address] [place] [address] Encounter Details Date Type Department Care Team Description 07/03/2019 - Hospital Encounter [facility] Feroz Wong MD [address] [facility] [id number] [place], [place] [id number] Pancreatitis, acute 07/06/2019 Surgery Unit Sadiq hSaver MBBS [address] [place], [place] [id number] [address] [place] [address] [place], [place] [id number] Allergies No Known Allergiesdocumented as of this encounter (statuses as of 07/06/2019) Medications Medication Sig Dispensed Refills Start Date [...] (four) times solutionIndications: daily as needed Left-sided Wilalrd's palsy (Dryness). SERTraline 50 mg tablet Take 50 mg by 0 Active mouth daily. omeprazole 20 mg capsule Take 20 mg by 0 Active mouth daily. amLODIPine 10 mg tablet Take 10 mg by 0 Active mouth daily. lisinopril 5 mg tablet Take 5 mg by 0 Active mouth daily. documented as of this encounter (statuses as of 07/06/2019) Active Problems Problem Noted Date Pancreatitis, acute 07/03/2019 Obesity (BMI 30-39.9) 07/03/2019 documented as of this encounter (statuses as of 07/06/2019) Social History Tobacco Use Types Packs/Day Years Used Date Former Smoker Smokeless Tobacco: Never Used Comments: Stopped smoking 2012 Sex Assigned at Date Recorded Not on file Job Start Date Occupation Industry Not on file Not on file Not on file Travel History Travel Start Travel End No recent travel history available. documented as of this encounter Last Filed Vital Signs Vital Sign Reading Time Taken Comments Blood Pressure 119/75 07/06/2019 11:24 132/75 rt arm pt AM CDT asked if i would ck in this arm since iv wa Pulse 71 07/06/2019 11:24 AM CDT Temperature 36.8 C (98.2 F) 07/06/2019 11:24 AM CDT Respiratory Rate 16 07/06/2019 11:24 AM CDT Oxygen Saturation 96% 07/06/2019 11:24 AM CDT Inhaled Oxygen - - Concentration Weight 88.5 kg (195 lb) 07/03/2019 7:46 PM CDT Height 160 cm (5' 3") 07/03/2019 7:46 PM CDT Body Mass Index 34.54 07/03/2019 7:46 PM CDT documented in this encounter Discharge Summaries Sadiq Shaver MBBS - 07/06/2019 2:42 PM CDT Discharge Summary ADMIT DATE: 07/03/2019 DISCHARGE DATE: 07/06/19 REASON FOR ADMISSION Acute pancreatitis FINAL DIAGNOSIS:Acute pancreatitis SIGNIFICANT LAB/X-RAYS: Lab results: CBC BMP PT/INR WBC (10*3/L) Date Value 07/04/2019 6.82 NA (mmol/L) Date Value 07/05/2019 138 No results found for: PT RBC (10*6/L) Date Value 07/04/2019 4.05 K (mmol/L) Date Value 07/05/2019 3.9 No results found for: PTINR PLT (10*3/L) Date Value 07/04/2019 265 CALCIUM (mg/dL) Date Value 07/05/2019 8.5 (L) HGB (g/dL) Date Value 07/04/2019 11.3 (L) CL (mmol/L) Date Value 07/05/2019 107 aPTT HCT (%) Date Value 07/04/2019 36.8 BUN (mg/dL) Date Value 07/05/2019 9 No results found for: APTTPAT CREATININE (mg/dL) Date Value 07/05/2019 0.60 GLUCOSE (mg/dL) Date Value 07/05/2019 66 (L) CO2 TOTAL (mmol/L) Date Value 07/05/2019 21 (L) X-ray results: Ct Abdomen Pelvis W Contrast Result Date: 07/03/2019 Acute interstitial pancreatitis without evidence of complication. I, Quang Thompson MD., have reviewed this study and agree with the above report. Physical Exam: Constitutional: normal body habitus Eyes: EOMI PERRLA ENT: OP clear. Nasal septum in midline ears normal Respiratory: No chest wall tenderness, equal and symmetric expansion b/l CTA b/l Cardiovascular : Regular rate and rhythm S1S2 normal. No murmur. No cyanosis clubbing or edema GI: abd Soft ND NT no organomegaly HOSPITAL COURSE: 53 year-old with acute pancreatitis, idiopathic. Resolved with bowel rest and IV fluids and tolerating diet and d/tyler home Discussed with the patient and all questioned fully answered. She will call me if any problems arise. Time spent on discharge 35 minutes DISCHARGE CONDITION: fair COGNITIVE STATUS: cognitively intact DIET: regular ACTIVITY: as tolerated DISCHARGE MEDICATIONS: Current Discharge Medication List CONTINUE these medications which have NOT CHANGED Details amLODIPine (NORVASC) 10 mg Take 10 mg by mouth daily. lisinopril (PRINIVIL,ZESTRIL) 5 mg Take 5 mg by mouth daily. omeprazole (PRILOSEC) 20 mg Take 20 mg by mouth daily. SERTraline (ZOLOFT) 50 mg Take 50 mg by mouth daily. dextran 70-hypromellose (TEARS RENEWED) [address] 1 Drop in left eye 4 (four ) times daily as needed (Dryness). Qty: 30 mL, Refills: 0 Associated Diagnoses: Left-sided Willard's palsy erythromycin (ILOTYCIN) 0.[address] 0.5 Inches in left eye at bedtime. Qty: 1 g, Refills: 0 Associated Diagnoses: Left-sided Willard's palsy acetaminophen-codeine (TYLENOL #3) 1 tablet Take 1 tablet by mouth every 8 ( eight) hours as needed for Pain (scale 4-6). Qty: 16 tablet, Refills: 0 cyclobenzaprine (FLEXERIL) 10 mg Take 10 mg by mouth 3 (three) times daily as needed for Muscle Spasms (pain). Qty: 16 tablet, Refills: 0 promethazine-codeine (PHENERGAN with CODEINE) 5 mL Take 5 mL by mouth 4 (four) times daily as neededfor Cough. Qty: 120 mL, Refills: 0 DISCHARGE: home self care FOLLOW-UP APPOINTMENT: Please call paging services at [phone] to contact DOLLY Meredith with any questions. documented in this encounter Discharge Instructions Gi Borja RN - 07/06/2019 9:59 AM CDTCall for follow up appointment Jean Claude Carreno [facility] Address: [address] [id number] Address: [address] [place] [address] Electronically signed by Gi Salazar RN at 2018 9:59 AM CDT Additional InstructionsKaleigh Dobson RN - 07/05/2019 Patient Discharge Instructions Discharge date: 07/05/2019 Discharge Orders Discharge Follow-up: PCP REFERRING/PCP PROV NOT IN SYST; 1 Week To PCP: REFERRING/PCP PROV NOT IN SYST [[id number]] Patient's Preferred Location: [place] Discharge Disposition: HOME, (AHR) When (Patients with risk for unplanned readmission score over 16 or those noted as Hospital Dependent should follow up within 7 days with PCP or primary DX specialist): 1 Week Risk of Unplanned Readmission:( Score greater than 16 indicates high risk) 9 Regular Diet; Texture: Regular. Texture Regular. Diabetic: No Discharge Condition - Discharge Condition: FAIR Discharge Activity Discharge Activity: As Tolerated No VTE Prophylaxis given- Patient low risk for VTE; Not ordered during hospitalization Take Home Medications These are medications ordered for you by your healthcare provider. Do not take any other medications or supplements unless advised by your healthcare provider. Current Discharge Medication List CONTINUE these medications which have NOT CHANGED Details amLODIPine 10 mg tablet Take 10 mg by mouth daily. lisinopril 5 mg tablet Take 5 mg by mouth daily. omeprazole 20 mg capsule Take 20 mg by mouth daily. SERTraline 50 mg tablet Take 50 mg by mouth daily. dextran 70-hypromellose (TEARS NATURALE II) ophthalmic solution Place 1 Drop in left eye 4 (four) times daily as needed (Dryness). Qty: 30 mL, Refills: 0 Associated Diagnoses: Left-sided Willard's palsy erythromycin 5 mg/gram (0.5 %) ophthalmic ointment Place 0.5 Inches in left eye at bedtime. Qty: 1 g, Refills: 0 Associated Diagnoses: Left-sided Willard's palsy acetaminophen-codeine 300-30 mg tablet Take 1 tablet by mouth every 8 (eight) hours as needed for Pain (scale 4-6). Qty: 16 tablet, Refills: 0 cyclobenzaprine 10 mg tablet Take 1 tablet by mouth 3 (three) times daily as needed for Muscle Spasms (pain). Qty: 16 tablet, Refills: 0 promethazine-codeine 6.25-10 mg/5 mL syrup Take 5 mL by mouth 4 (four) times daily as needed for Cough. Qty: 120 mL, Refills: 0 Follow-up appointments: Please follow up with your primary care provider in 1 week. Call the office to schedule your appointment. For questions regarding follow-up instructions call the [employer] at [phone] or If you experience any of the following symptoms such as abdominal pain, nausea, vomiting, please follow up with your primary care provider or return to the ER For worsening symptoms/changing condition/problems or questions: Non-emergency/urgent: Call the [employer] Hotline at or Emergency: Go to the closest emergency room or call [phone] If you receive the patient satisfaction survey by mail please complete and return and let us know how we are doing. TOBACCO AVOIDANCE Exposure to tobacco either from smoking or from second hand (environmental) smoke or smokeless tobacco (snuff) is damaging to your health. This information is to encourage everyone to avoid tobacco exposure. It is recommended that you: ? If you smoke or use smokeless tobacco, we encourage you to quit. ? If you have already quit smoking, continue your good work! ? If you do not smoke or use smokeless tobacco, do not start. ? Avoid secondhand smoke. Additional Resources You may want to contact these organizations for further information on smoking and how to quit. [place] [employer], http://www.lungusa.org/stop-smoking/ [employer], http://www.cancer.org/Healthy/StayAwayfromTobacco/index [place] Heart [employer], http://www.heart.org/HEARTORG/GettingHealthy/ QuitSmoking/Quit-Smoking_[facility]_001085_SubHomePage.jsp documented in this encounter Progress Notes Sadiq Shaver MBBS - 07/05/2019 2:54 PM CDT Hospitalist Medicine Progress Note SUBJECTIVE: Patient tolerating clears but with pain with solid food . PHYSICAL EXAM: Vitals: 07/05/19 0002 07/05/19 0415 07/05/19 0746 07/05/19 1117 BP: 138/66 (!) 155/83 128/66 130/76 Pulse: 69 73 67 70 Resp: 18 18 16 16 Temp: 36.9 C (98.4 F) 36.9 C (98.5 F) 36.7 C (98 F) 36.9 C (98.5 F) TempSrc: Oral Oral SpO2: 90% 93% 94% 95% Weight: Height: Constitutional: normal body habitus Eyes: EOMI PERRLA ENT: OP clear. Neck supple Respiratory: No chest wall tenderness, equal and symmetric expansion b/l CTA b/l Cardiovascular : Regular rate and rhythm S1S2 normal. No murmur. No cyanosis clubbing or edema GI: abd Soft mild TTP LABS/imaging- reviewed pertinent labs as below: Recent Results (from the past 24 hour(s)) BASIC METABOLIC PANEL (NA, K, CL, CO2, GLUCOSE, BUN, CREATININE, CA) Collection Time: 07/05/19 4:56 AM Result Value Ref Range NA 138 135 - 145 mmol/L K 3.9 3.5 - 5.0 mmol/L CL 107 98 - 108 mmol/L CO2 TOTAL 21 (L) 23 - 31 mmol/L AGAP 10 2 - 16 BUN 9 7 - 23 mg/dL GLUCOSE 66 (L) 70 - 110 mg/dL CREATININE 0.60 0.50 - 1.04 mg/dL CALCIUM 8.5 (L) 8.6 - 10.6 mg/dL eGFR Calculation (Non-) 105.4 mL/min/1.73m2 eGFR Calculation () 127.7 mL/min/1.73m2 LIPASE Collection Time: 07/05/19 4:56 AM Result Value Ref Range LIPASE 539 (H) 0 - 220 U/L Current Meds reviewed Current Facility-Administered Medications: ondansetron (ZOFRAN (PF)) injection 4 mg, 4 mg, Slow IV Push, Q6HPRN, Sadiq Shaver MBBS HYDROcodone-acetaminophen (NORCO) 10-325 mg tablet 1 tablet, 1 tablet, Oral , Q6HPRN, Karo Shanks MD, 1 tablet at 07/05/19 1210 NaCl 0.9% (NS) IV infusion 1,000 mL, 1,000 mL, IV Infusion, CONTINUOUS, Sadiq Shaver MBBS, Last Rate: 125 mL/hr at 07/05/19 1327, 1,000 mL at 07/05/19 1327 pantoprazole (PROTONIX) EC tablet 40 mg, 40 mg, Oral, DAILY, Feroz Diaz MD, 40 mg at 07/05/19 0823 ASSESSMENT/PLAN Acute pancreatitis: Clear liq diet Am lipase HTN; Hold meds for now DVT prophylaxis: scd Code Status cpr Dispo: home Melva Gordon LB - 07/05/2019 11:25 AM CDTSubjective Patient ID: Xuan Peacock is a 53 year old female. 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: Self MPOA: No Living Arrangement: Home Address of living arrangement : [address] [place] [address] Persons living in home: Self Barriers to returning home: None Baseline functional status- ambulation: Independent Functional status-baseline personal care: Independent Baseline functional status- driving: Independent Baseline functional status- grocery shopping: Independent Functional status-baseline housekeeping: Independent Functional status-baseline meal prep: Independent Current functional status same as prior: Yes Do you have a PCP?: Yes Home Health Care Agency: No Provider Services: No DME Company: No Equipment: None Hemodialysis: No Community resources utilized: None Funding Resources: Commercial Prescription coverage plan: [facility] where meds are filled: Other Anticipated services prior to disharge: Continue Medical Eval Expected mode of discharge transportation: Same as support system Additional Recommendations for DC: Medical clearance Additional info required for discharge planning: Pending medical evaluation Recommended discharge plan: Home SFA Complete: Social Functional Assessment complete: Yes Alcohol Use Screening (AUDIT-C) How often do you have a drink containing alcohol?: Never SCORE: 0 Did patient elect to have resources provided: No Role of Care Management explained. Any issues or concerns with obtaining/affording your medications at home: no. Are you or your support system able to medicinal plant picker medications at discharge: yes. Review of Systems Objective Physical Exam Assessment/Plan Home, no needs BAILEE Vinson Netting Weaver - Care Management [facility] [phone] [email or web address] Sadiq Ellis MBBS - 07/04/2019 11:18 AM CDT Hospitalist Medicine Progress Note SUBJECTIVE: stil with pain PHYSICAL EXAM: Vitals: 07/03/19 2351 07/04/19 0423 07/04/19 0720 07/04/19 1118 BP: 136/74 107/65 98/61 113/71 Pulse: 63 58 60 62 Resp: 18 18 18 18 Temp: 36.6 C (97.8 F) 36.6 C (97.9 F) 36.7 C (98.1 F) 36.8 C ( 98.3 F) TempSrc: Oral Oral Oral Oral SpO2: 98% 97% 93% 91% Weight: Height: Constitutional: normal body habitus Eyes: EOMI PERRLA ENT: OP clear. Neck supple Respiratory: No chest wall tenderness, equal and symmetric expansion b/l CTA b/l Cardiovascular : Regular rate and rhythm S1S2 normal. No murmur. No cyanosis clubbing or edema GI: abd Soft mild TTP LABS/imaging- reviewed pertinent labs as below: Recent Results (from the past 24 hour(s)) Basic Metabolic Panel (NA, K, CL, CO2, GLUCOSE, BUN, CREATININE, CA) Collection Time: 07/03/19 4:10 PM Result Value Ref Range NA 143 135 - 145 mmol/L K 3.8 3.5 - 5.0 mmol/L CL 108 98 - 108 mmol/L CO2 TOTAL 25 23 - 31 mmol/L AGAP 10 2 - 16 BUN 17 7 - 23 mg/dL GLUCOSE 89 70 - 110 mg/dL CREATININE 0.78 0.50 - 1.04 mg/dL CALCIUM 9.4 8.6 - 10.6 mg/dL eGFR Calculation (Non-) 77.9 mL/min/1.73m2 eGFR Calculation () 94.4 mL/min/1.73m2 Hepatic Function Panel (ALB, T.PRO, BILI T, BU/BC, ALT, AST, ALK PHOS) Collection Time: 07/03/19 4:10 PM Result Value Ref Range TOTAL BILI 0.2 0.1 - 1.1 mg/dL BILI UNCON 0.1 0.1 - 1.1 mg/dL BILI CONJ 0.0 0.0 - 0.3 mg/dL T PROTEIN 7.8 6.3 - 8.2 g/dL ALBUMIN 4.3 3.5 - 5.0 g/dL ALK PHOS 90 34 - 122 U/L ALT(SGPT) 59 (H) 9 - 51 U/L AST(SGOT) 73 (H) 13 - 40 U/L Lipase Serum Collection Time: 07/03/19 4:10 PM Result Value Ref Range LIPASE >6,000 (H) 0 - 220 U/L Urinalysis Collection Time: 07/03/19 4:10 PM Result Value Ref Range APPEARANCE Clear Clear COLOR Yellow Yellow PH 6.0 4.8 - 8.0 SP GRAVITY 1.020 1.003 - 1.030 GLU U QUAL Negative Negative BLOOD Negative Negative KETONES Negative Negative PROTEIN Negative Negative UROBILIN 1.0 mg/dL 0-1.0 mg/dL BILIRUBIN Negative Negative NITRITE Negative Negative LEUK LAQUITA Negative Negative RBC/HPF 1 0 - 3 HPF WBC/HPF 0 0 - 5 HPF BACTERIA Few (A) Negative MUCOUS Moderate (A) Negative LPF SQ EPITH 20 HPF CBC WITH DIFFERENTIAL Collection Time: 07/03/19 4:10 PM Result Value Ref Range WBC 8.16 4.30 - 11.10 10*3/L RBC 4.83 3.93 - 5.25 10*6/L HGB 13.5 11.6 - 15.0 g/dL HCT 41.4 35.7 - 45.2 % MCV 85.7 80.6 - 95.5 fL MCH 28.0 25.9 - 32.8 pg MCHC 32.6 31.6 - 35.1 g/dL RDW-SD 40.1 39.0 - 49.9 fL RDW-CV 13.0 12.0 - 15.5 % PLT 332 166 - 358 10*3/L MPV 10.0 9.5 - 12.9 fL NRBC/100 WBC 0.0 0.0 - 10.0 /100 WBCs NRBC x10^3 <0.01 10*3/L GRAN MAT (NEUT) % 70.4 % IMM GRAN % 0.40 % LYMPH % 19.5 % MONO % 8.2 % EOS % 1.1 % BASO % 0.4 % GRAN MAT x10^3(ANC) 5.75 1.88 - 7.09 10*3/uL IMM GRAN x10^3 0.03 0.00 - 0.06 10*3/uL LYMPH x10^3 1.59 1.32 - 3.29 10*3/uL MONO x10^3 0.67 0.33 - 0.92 10*3/uL EOS x10^3 0.09 0.03 - 0.39 10*3/uL BASO x10^3 0.03 0.01 - 0.07 10*3/uL Magnesium Serum Collection Time: 07/04/19 4:06 AM Result Value Ref Range MAGNESIUM 2.2 1.7 - 2.4 mg/dL Basic Metabolic Panel (NA, K, CL, CO2, GLUCOSE, BUN, CREATININE, CA) Collection Time: 07/04/19 4:06 AM Result Value Ref Range NA 140 135 - 145 mmol/L K 3.9 3.5 - 5.0 mmol/L CL 110 (H) 98 - 108 mmol/L CO2 TOTAL 26 23 - 31 mmol/L AGAP 4 2 - 16 BUN 15 7 - 23 mg/dL GLUCOSE 87 70 - 110 mg/dL CREATININE 0.74 0.50 - 1.04 mg/dL CALCIUM 8.6 8.6 - 10.6 mg/dL eGFR Calculation (Non-) 82.7 mL/min/1.73m2 eGFR Calculation () 100.3 mL/min/1.73m2 CBC WITH DIFFERENTIAL Collection Time: 07/04/19 4:06 AM Result Value Ref Range WBC 6.82 4.30 - 11.10 10*3/L RBC 4.05 3.93 - 5.25 10*6/L HGB 11.3 (L) 11.6 - 15.0 g/dL HCT 36.8 35.7 - 45.2 % MCV 90.9 80.6 - 95.5 fL MCH 27.9 25.9 - 32.8 pg MCHC 30.7 (L) 31.6 - 35.1 g/dL RDW-SD 43.8 39.0 - 49.9 fL RDW-CV 13.2 12.0 - 15.5 % PLT 265 166 - 358 10*3/L MPV 10.3 9.5 - 12.9 fL NRBC/100 WBC 0.0 0.0 - 10.0 /100 WBCs NRBC x10^3 <0.01 10*3/L GRAN MAT (NEUT) % 58.1 % IMM GRAN % 0.30 % LYMPH % 30.6 % MONO % 8.5 % EOS % 2.1 % BASO % 0.4 % GRAN MAT x10^3(ANC) 3.96 1.88 - 7.09 10*3/uL IMM GRAN x10^3 <0.03 0.00 - 0.06 10*3/uL LYMPH x10^3 2.09 1.32 - 3.29 10*3/uL MONO x10^3 0.58 0.33 - 0.92 10*3/uL EOS x10^3 0.14 0.03 - 0.39 10*3/uL BASO x10^3 0.03 0.01 - 0.07 10*3/uL Current Meds reviewed Current Facility-Administered Medications: ondansetron (ZOFRAN (PF)) injection 4 mg, 4 mg, Slow IV Push, Q6HPRN, Sadiq Shaver MBBS HYDROcodone-acetaminophen (NORCO) 10-325 mg tablet 1 tablet, 1 tablet, Oral , Q6HPRN, Karo Shanks MD, 1 tablet at 07/04/19 0120 morpHINE injection 4 mg, 4 mg, Slow IV Push, Q3HPRN, Karo Shanks MD, 4 mg at 07/04/19 0850 NaCl 0.9% (NS) IV infusion 1,000 mL, 1,000 mL, IV Infusion, CONTINUOUS, Sadiq Shaver MBBS, Last Rate: 125 mL/hr at 07/04/19 0402, 1,000 mL at 07/04/19 0402 pantoprazole (PROTONIX) EC tablet 40 mg, 40 mg, Oral, DAILY, Feroz Diaz MD, 40 mg at 07/04/19 0850 ASSESSMENT/PLAN Acute pancreatitis: IV fluids pain control. HTN; Hold meds for now DVT prophylaxis: scd Code Status cpr Dispo: home documented in this encounter Plan of Treatment Name Type Priority Associated Diagnoses Order Schedule BASIC METABOLIC PANEL LAB Routine EVERY MORNING AT 0500 for (NA, K, CL, CO2, GLUCOSE, 3 Days starting BUN, CREATININE, CA) 07/05/2019 until 07/07/2019, 2 completed Health Maintenance Due Date Last Done Comments DTaP,Tdap,and Td Vaccines (1 - 1986 Tdap) PAP SMEAR 1988 MAMMOGRAM 2007 COLONOSCOPY 2017 Zoster Recombinant Vaccine 2017 (SHINGRIX) (1 of 2) INFLUENZA VACCINE 07/25/2019 PNEUMOCOCCAL 0-64 YEARS COMBINED Aged Out No longer eligible based on SERIES patient's age to complete this topic documented as of this encounter Procedures Procedure Name Priority Date/Time Associated Comments Diagnosis BASIC METABOLIC PANEL Routine 07/06/2019 4:45 Results for this (NA, K, CL, CO2, AM CDT procedure are in GLUCOSE, BUN, the results CREATININE, CA) section. LIPASE Routine 07/06/2019 4:45 Results for this AM CDT procedure are in the results section. BASIC METABOLIC PANEL Routine 07/05/2019 4:56 Results for this (NA, K, CL, CO2, AM CDT procedure are in GLUCOSE, BUN, the results CREATININE, CA) section. LIPASE Routine 07/05/2019 4:56 Results for this AM CDT procedure are in the results section. CBC WITH DIFFERENTIAL Routine 07/04/2019 4:06 Results for this AM CDT procedure are in the results section. CBC WITH DIFF Routine 07/04/2019 4:06 Results for this AM CDT procedure are in the results section. BASIC METABOLIC PANEL Routine 07/04/2019 4:06 Results for this (NA, K, CL, CO2, AM CDT procedure are in GLUCOSE, BUN, the results CREATININE, CA) section. MAGNESIUM Routine 07/04/2019 4:06 Results for this AM CDT procedure are in the results section. LIPASE Add-on 07/04/2019 4:06 Results for this AM CDT procedure are in the results section. CT ABDOMEN PELVIS W STAT 07/03/2019 5:47 Epigastric Results for this CONTRAST PM CDT abdominal pain procedure are in the results section. CBC WITH DIFFERENTIAL STAT 07/03/2019 4:10 Epigastric Results for this PM CDT abdominal pain procedure are in the results section. URINALYSIS STAT 07/03/2019 4:10 Epigastric Results for this PM CDT abdominal pain procedure are in the results section. CBC WITH DIFF Routine 07/03/2019 4:10 Epigastric Results for this PM CDT abdominal pain procedure are in the results section. BASIC METABOLIC PANEL STAT 07/03/2019 4:10 Epigastric Results for this (NA, K, CL, CO2, PM CDT abdominal pain procedure are in GLUCOSE, BUN, the results CREATININE, CA) section. HEPATIC FUNCTION STAT 07/03/2019 4:10 Epigastric Results for this PANEL (94319) PM CDT abdominal pain procedure are in (ALB,T.PRO,BILI the results T,BU/BC,ALT,AST,ALK section. PHOS) LIPASE STAT 07/03/2019 4:10 Epigastric Results for this PM CDT abdominal pain procedure are in the results section. documented in this encounter Results LIPASE (07/06/2019 4:45 AM CDT) LIPASE 347 (H) 0 - 220 U/L [facility] Specimen Blood - ARM, LEFT Performing Organization Address City/State/Zipcode Phone Number [facility] CLIA: [id number], [address] [place] [address] BASIC METABOLIC PANEL (NA, K, CL, CO2, GLUCOSE, BUN, CREATININE, CA) (2018 4:45 AM CDT) NA 140 135 - 145 [facility] mmol/L [facility] K 3.8 3.5 - 5.0 [facility] mmol/L [facility] CL 109 (H) 98 - 108 mmol/L [facility] CO2 TOTAL 23 23 - 31 mmol/L [facility] AGAP 8 2 - 16 [facility] BUN 6 (L) 7 - 23 mg/dL [facility] GLUCOSE 79 70 - 110 mg/dL [facility] CREATININE 0.64 0.50 - 1.04 [facility] mg/dL [facility] CALCIUM 8.8 8.6 - 10.6 [facility] mg/dL [facility] eGFR Calculation 97.8 mL/min/1.73m2 [facility] ([facility] [place]) eGFR Calculation 118.6 mL/min/1.73m2 [facility] () [facility] Specimen Blood - ARM, LEFT Narrative Performed At Association of Glomerular Filtration Rate (GFR) [facility] and Staging of Kidney Disease* + + +- + | GFR (mL/min/1.73 m2)| With Kidney Damage|Without Kidney Damage + + +- + |>90| Stage one| Normal + + +- + |60-89|S tage two| Decreased GFR + + +- + |30-59|S tage three| Stage three + + +- + |15-29|S tage four | Stage four + + +- + |<15 (or dialysis)|Stage five | Stage five + + +- + *Each stage assumes the associated GFR level has been in effect for at least three months.Stages 1 to 5, with or without kidney disease, indicate chronic kidney disease. Notes: Determination of stages one and two (with eGFR >59mL/min/1.73 m2) requires estimation of kidney damage for at least three months as defined by structural or functional abnormalities of the kidney, manifested by either: Pathological abnormalities or Markers of kidney damage (including abnormalities in the composition of the blood or urine or abnormalities in imaging tests). Performing Organization Address City/State/Zipcode Phone Number [facility] CLIA: [id number], [address] [place] [address] BASIC METABOLIC PANEL (NA, K, CL, CO2, GLUCOSE, BUN, CREATININE, CA) (2018 4:56 AM CDT) NA 138 135 - 145 [facility] mmol/L [facility] K 3.9 3.5 - 5.0 [facility] mmol/L [facility] CL 107 98 - 108 mmol/L [facility] CO2 TOTAL 21 (L) 23 - 31 mmol/L [facility] AGAP 10 2 - 16 [facility] BUN 9 7 - 23 mg/dL [facility] GLUCOSE 66 (L) 70 - 110 mg/dL [facility] CREATININE 0.60 0.50 - 1.04 [facility] mg/dL [facility] CALCIUM 8.5 (L) 8.6 - 10.6 [facility] mg/dL [facility] eGFR Calculation 105.4 mL/min/1.73m2 [facility] ([facility] Thai) eGFR Calculation 127.7 mL/min/1.73m2 [facility] () [facility] Specimen Blood Narrative Performed At Association of Glomerular Filtration Rate (GFR) [facility] and Staging of Kidney Disease* + + +- + | GFR (mL/min/1.73 m2)| With Kidney Damage|Without Kidney Damage + + +- + |>90| Stage one| Normal + + +- + |60-89|S tage two| Decreased GFR + + +- + |30-59|S tage three| Stage three + + +- + |15-29|S tage four | Stage four + + +- + |<15 (or dialysis)|Stage five | Stage five + + +- + *Each stage assumes the associated GFR level has been in effect for at least three months.Stages 1 to 5, with or without kidney disease, indicate chronic kidney disease. Notes: Determination of stages one and two (with eGFR >59mL/min/1.73 m2) requires estimation of kidney damage for at least three months as defined by structural or functional abnormalities of the kidney, manifested by either: Pathological abnormalities or Markers of kidney damage (including abnormalities in the composition of the blood or urine or abnormalities in imaging tests). Performing Organization Address City/[facility]/Zipcode Phone Number [facility] CLIA: [id number], [address] [place] [address] LIPASE (07/05/2019 4:56 AM CDT) LIPASE 539 (H) 0 - 220 U/L [facility] Specimen Blood Performing Organization Address [facility] Cent[facility]ode Phone Number [facility] CLIA: [id number], [address] [place], [place] [address] [address] LIPASE (07/04/2019 4:06 AM CDT) LIPASE 4,072 (H) 0 - 220 U/L [facility] Specimen Blood - ARM, LEFT Performing Organization Address [facility] Centercowy Phone Number [facility] CLIA: [id number], [address] [place], [place] [address] [address] CBC WITH DIFFERENTIAL (07/04/2019 4:06 AM CDT) WBC 6.82 4.30 - 11.10 [facility] 10*3/L [facility] RBC 4.05 3.93 - 5.25 [facility] 10*6/L [facility] HGB 11.3 (L) 11.6 - 15.0 [facility] g/dL [facility] HCT 36.8 35.7 - 45.2 % [facility] MCV 90.9 80.6 - 95.5 fL [facility] MCH 27.9 25.9 - 32.8 pg [facility] MCHC 30.7 (L) 31.6 - 35.1 [facility] g/dL [facility] RDW-SD 43.8 39.0 - 49.9 fL [facility] RDW-CV 13.2 12.0 - 15.5 % [facility] PLT 265 166 - 358 [facility] 10*3/L [facility] MPV 10.3 9.5 - 12.9 fL [facility] NRBC/100 WBC 0.0 0.0 - 10.0 /100 [facility] WBCs [facility] NRBC x10^3 <0.01 10*3/L [facility] GRAN MAT (NEUT) % 58.1 % [facility] IMM GRAN % 0.30 % [facility] LYMPH % 30.6 % [facility] MONO % 8.5 % [facility] EOS % 2.1 % [facility] BASO % 0.4 % [facility] GRAN MAT x10^3(ANC) 3.96 1.88 - 7.09 [facility] 10*3/uL [facility] IMM GRAN x10^3 <0.03 0.00 - 0.06 [facility] 10*3/uL [facility] LYMPH x10^3 2.09 1.32 - 3.29 [facility] 10*3/uL HOSPITAL LABORATORY MONO x10^3 0.58 0.33 - 0.92 [facility] 10*3/uL [facility] EOS x10^3 0.14 0.03 - 0.39 [facility] 10*3/uL HOSPITAL LABORATORY BASO x10^3 0.03 0.01 - 0.07 [facility] 10*3/uL [facility] Specimen Blood - ARM, LEFT Performing Organization Address City/State/Zipcode Phone Number [facility] CLIA: [id number], [address] [place] [address] Basic Metabolic Panel (NA, K, CL, CO2, GLUCOSE, BUN, CREATININE, CA) (2018 4:06 AM CDT) NA 140 135 - 145 [facility] mmol/L [facility] K 3.9 3.5 - 5.0 [facility] mmol/L [facility] CL 110 (H) 98 - 108 mmol/L [facility] CO2 TOTAL 26 23 - 31 mmol/L [facility] AGAP 4 2 - 16 [facility] BUN 15 7 - 23 mg/dL [facility] GLUCOSE 87 70 - 110 mg/dL [facility] CREATININE 0.74 0.50 - 1.04 [facility] mg/dL [facility] CALCIUM 8.6 8.6 - 10.6 [facility] mg/dL [facility] eGFR Calculation 82.7 mL/min/1.73m2 [facility] ([facility] [place] [facility] Thai) eGFR Calculation 100.3 mL/min/1.73m2 [facility] () [facility] Specimen Blood - ARM, LEFT Narrative Performed At Association of Glomerular Filtration Rate (GFR) [facility] LAB[facility] and Staging of Kidney Disease* + + +- + | GFR (mL/min/1.73 m2)| With Kidney Damage|Without Kidney Damage + + +- + |>90| Stage one| Normal + + +- + |60-89|S tage two| Decreased GFR + + +- + |30-59|S tage three| Stage three + + +- + |15-29|S tage four | Stage four + + +- + |<15 (or dialysis)|Stage five | Stage five + + +- + *Each stage assumes the associated GFR level has been in effect for at least three months.Stages 1 to 5, with or without kidney disease, indicate chronic kidney disease. Notes: Determination of stages one and two (with eGFR >59mL/min/1.73 m2) requires estimation of kidney damage for at least three months as defined by structural or functional abnormalities of the kidney, manifested by either: Pathological abnormalities or Markers of kidney damage (including abnormalities in the composition of the blood or urine or abnormalities in imaging tests). Performing Organization Address City/State/Zipcode Phone Number [facility] CLIA: [id number], [address] [place] [address] Magnesium Serum (07/04/2019 4:06 AM CDT) MAGNESIUM 2.2 1.7 - 2.4 mg/dL [facility] Specimen Blood - ARM, LEFT Performing Organization Address City/State/Zipcode Phone Number [facility] CLIA: [id number], [address] [place] [address] ABDOMEN PELVIS W CONTRAST (07/03/2019 5:47 PM CDT) Specimen Impressions Performed At PACS/VR/DOSE Acute interstitial pancreatitis without evidence of complication. IUriel MD., have reviewed this study and agree with the above report. Narrative Performed At * * * * * * * * ORIGINAL REPORT * * * * * * * * PACS/VR/DOSE EXAM: CT ABDOMEN AND PELVIS WITH CONTRAST HISTORY: Abd distension COMPARISON: TECHNIQUE AND FINDINGS: Contiguous axial imaging from the level of the lung bases through the pubic symphysis was performed after the uncomplicated administration of 120 cc of intravenous Omnipaque contrast. Coronal and sagittal reconstructions were obtained. Auto mA and/or iterative reconstruction were used to reduce radiation dose. FINDINGS: LOWER THORAX: A 3 mm noncalcified subpleural nodule in the left lower lobe on 2:12 is noted. The lungs bases are otherwise clear. No cardiomegaly. LIVER: The left hepatic lobe is prominent, normal variant. Normal contour. No focal hepatic lesions. GALLBLADDER AND BILIARY TREE: No gallbladder wall thickening. No biliary ductal dilation. SPLEEN: No splenomegaly. PANCREAS: Appear mildly edematous with adjacent fat stranding. No intrapancreatic or peripancreatic collection noted. No ductal dilatation. ADRENAL GLANDS: No adrenal nodules. KIDNEYS: No hydronephrosis, stones, or masses. PERITONEUM AND RETROPERITONEUM: No free air or fluid. LYMPH NODES: No lymphadenopathy. GI TRACT: The small and large large bowel are normally distended. No evidence of obstruction. No bowel wall thickening. A small hiatal hernia is noted. The appendix is not visualized, but no inflammatory changes are seen in the region of the cecum. PELVIS/BLADDER: The bladder is normally distended. No bladder wall thickening. The uterus is unremarkable. The ovaries are normal. VESSELS: Mild scattered atherosclerotic calcifications of the abdominal aorta and branching arteries. BONES AND SOFT TISSUES: No suspicious lytic or sclerotic bony lesions. Procedure Note [facility], Radiant Results Inft User - 07/03/2019 6:30 PM CDT * * * * * * * * ORIGINAL REPORT * * * * * * * * EXAM: CT ABDOMEN AND PELVIS WITH CONTRAST HISTORY: Abd distension COMPARISON: TECHNIQUE AND FINDINGS: Contiguous axial imaging from the level of the lung bases through the pubic symphysis was performed after the uncomplicated administration of 120 cc of intravenous Omnipaque contrast. Coronal and sagittal reconstructions were obtained. Auto mA and/or iterative reconstruction were used to reduce radiation dose. FINDINGS: LOWER THORAX: A 3 mm noncalcified subpleural nodule in the left lower lobe on 2:12 is noted. The lungs bases are otherwise clear. No cardiomegaly. LIVER: The left hepatic lobe is prominent, normal variant. Normal contour. No focal hepatic lesions. GALLBLADDER AND BILIARY TREE: No gallbladder wall thickening. No biliary ductal dilation. SPLEEN: No splenomegaly. PANCREAS: Appear mildly edematous with adjacent fat stranding. No intrapancreatic or peripancreatic collection noted. No ductal dilatation. ADRENAL GLANDS: No adrenal nodules. KIDNEYS: No hydronephrosis, stones, or masses. PERITONEUM AND RETROPERITONEUM: No free air or fluid. LYMPH NODES: No lymphadenopathy. GI TRACT: The small and large large bowel are normally distended. No evidence of obstruction. No bowel wall thickening. A small hiatal hernia is noted. The appendix is not visualized, but no inflammatory changes are seen in the region of the cecum. PELVIS/BLADDER: The bladder is normally distended. No bladder wall thickening. The uterus is unremarkable. The ovaries are normal. VESSELS: Mild scattered atherosclerotic calcifications of the abdominal aorta and branching arteries. BONES AND SOFT TISSUES: No suspicious lytic or sclerotic bony lesions. IMPRESSION Acute interstitial pancreatitis without evidence of complication. I, Quang Thompson MD., have reviewed this study and agree with the above report. Performing Organization Address City/State/Zipcode Phone Number PACS/VR/DOSE CBC WITH DIFFERENTIAL (07/03/2019 4:10 PM CDT) WBC 8.16 4.30 - 11.10 [facility] 10*3/L [facility] RBC 4.83 3.93 - 5.25 [facility] 10*6/L [facility] HGB 13.5 11.6 - 15.0 g/dL [facility] HCT 41.4 35.7 - 45.2 % [facility] MCV 85.7 80.6 - 95.5 fL [facility] MCH 28.0 25.9 - 32.8 pg [facility] MCHC 32.6 31.6 - 35.1 g/dL [facility] RDW-SD 40.1 39.0 - 49.9 fL [facility] RDW-CV 13.0 12.0 - 15.5 % [facility] PLT 332 166 - 358 [facility] 10*3/L [facility] MPV 10.0 9.5 - 12.9 fL [facility] NRBC/100 WBC 0.0 0.0 - 10.0 /100 [facility] WBCs HOSPITAL LABORATORY NRBC x10^3 <0.01 10*3/L [facility] GRAN MAT (NEUT) % 70.4 % [facility] IMM GRAN % 0.40 % [facility] LYMPH % 19.5 % [facility] MONO % 8.2 % [facility] EOS % 1.1 % [facility] BASO % 0.4 % [facility] GRAN MAT x10^3(ANC) 5.75 1.88 - 7.09 [facility] 10*3/uL HOSPITAL LABORATORY IMM GRAN x10^3 0.03 0.00 - 0.06 [facility] 10*3/uL HOSPITAL LABORATORY LYMPH x10^3 1.59 1.32 - 3.29 [facility] 10*3/uL HOSPITAL LABORATORY MONO x10^3 0.67 0.33 - 0.92 [facility] 10*3/uL HOSPITAL LABORATORY EOS x10^3 0.09 0.03 - 0.39 [facility] 10*3/uL HOSPITAL LABORATORY BASO x10^3 0.03 0.01 - 0.07 [facility] 10*3/uL HOSPITAL LABORATORY Specimen Blood - ARM, LEFT Performing Organization Address City/State/Zipcode Phone Number [facility] CLIA: [id number], [address] [place] [address] Urinalysis (07/03/2019 4:10 PM CDT) APPEARANCE Clear Clear [facility] COLOR Yellow Yellow [facility] PH 6.0 4.8 - 8.0 [facility] SP GRAVITY 1.020 1.003 - 1.030 [facility] GLU U QUAL Negative Negative [facility] BLOOD Negative Negative [facility] KETONES Negative Negative [facility] PROTEIN Negative Negative [facility] UROBILIN 1.0 mg/dL 0-1.0 mg/dL [facility] BILIRUBIN Negative Negative [facility] NITRITE Negative Negative [facility] LEUK LAQUITA Negative Negative [facility] RBC/HPF 1 0 - 3 HPF [facility] WBC/HPF 0 0 - 5 HPF [facility] BACTERIA Few (A) Negative [facility] MUCOUS Moderate (A) Negative LPF [facility] SQ EPITH 20 HPF [facility] Specimen Urine - URINE, CLEAN CATCH Performing Organization Address [facility] Phone Number [facility] CLIA: [id number], [address] [place] [address] Lipase Serum (07/03/2019 4:10 PM CDT) LIPASE >6000 (H) 0 - 220 U/L [facility] Specimen Blood - ARM, LEFT Performing Organization Address [facility] Phone Number [facility] CLIA: [id number], [address] [place] [address] Hepatic Function Panel (ALB, T.PRO, BILI T, BU/BC, ALT, AST, ALK PHOS) (2018 4:10 PM CDT) TOTAL BILI 0.2 0.1 - 1.1 mg/dL [facility] BILI UNCON 0.1 0.1 - 1.1 mg/dL [facility] BILI CONJ 0.0 0.0 - 0.3 mg/dL [facility] T PROTEIN 7.8 6.3 - 8.2 g/dL [facility] ALBUMIN 4.3 3.5 - 5.0 g/dL [facility] ALK PHOS 90 34 - 122 U/L [facility] ALT(SGPT) 59 (H) 9 - 51 U/L [facility] AST(SGOT) 73 (H) 13 - 40 U/L [facility] Specimen Blood - ARM, LEFT Performing Organization Address [facility] Phone Number [facility] CLIA: [id number], [address] [place] [address] Basic Metabolic Panel (NA, K, CL, CO2, GLUCOSE, BUN, CREATININE, CA) (2018 4:10 PM CDT) NA 143 135 - 145 mmol/L [facility] K 3.8 3.5 - 5.0 mmol/L [facility] CL 108 98 - 108 mmol/L [facility] CO2 TOTAL 25 23 - 31 mmol/L [facility] AGAP 10 2 - 16 [facility] BUN 17 7 - 23 mg/dL [facility] GLUCOSE 89 70 - 110 mg/dL [facility] CREATININE 0.78 0.50 - 1.04 [facility] mg/dL [facility] CALCIUM 9.4 8.6 - 10.6 mg/dL [facility] eGFR Calculation 77.9 mL/min/1.73m2 [facility] (Non-) [facility] eGFR Calculation 94.4 mL/min/1.73m2 [facility] () [facility] Specimen Blood - ARM, LEFT Narrative Performed At [facility] Glomerular Filtration Rate (GFR) [facility] and Staging of Kidney Disease* + + +- + | GFR (mL/min/1.73 m2)| With Kidney Damage|Without Kidney Damage + + +- + |>90| Stage one| Normal + + +- + |60-89|S tage two| Decreased GFR + + +- + |30-59|S tage three| Stage three + + +- + |15-29|S tage four | Stage four + + +- + |<15 (or dialysis)|Stage five | Stage five + + +- + *Each stage assumes the associated GFR level has been in effect for at least three months.Stages 1 to 5, with or without kidney disease, indicate chronic kidney disease. Notes: Determination of stages one and two (with eGFR >59mL/min/1.73 m2) requires estimation of kidney damage for at least three months as defined by structural or functional abnormalities of the kidney, manifested by either: Pathological abnormalities or Markers of kidney damage (including abnormalities in the composition of the blood or urine or abnormalities in imaging tests). Performing Organization Address City/State/Zipcode Phone Number [facility] CLIA: [id number], [address] [place] [address] documented in this encounter Visit Diagnoses Diagnosis Idiopathic acute pancreatitis without infection or necrosis - Primary Epigastric abdominal pain Abdominal pain, epigastric Pancreatitis, acute Acute pancreatitis Obesity (BMI 30-39.9) Obesity, unspecified documented in this encounter Administered Medications Medication Order MAR Action Action Date Dose Rate Site HYDROcodone-acetaminophen Given 07/06/2019 8:10 AM CDT 1 tablet (NORCO) 10-325 mg tablet 1 tablet 1 tablet, Oral, Q6HPRN, Starting 07/03/19 at 2359, Until Discontinued, Routine, Pain (scale 4-6) Given 07/05/2019 8:53 PM CDT 1 tablet Given 07/05/2019 12:10 PM CDT 1 tablet NaCl 0.9% (NS) IV infusion 1,000 New Bag 07/06/2019 4:45 AM CDT 1,000 mL 125 mL/hr mL at 125 mL/hr, IV Infusion, CONTINUOUS, Starting 07/03/19 at 1900, Until Discontinued, Routine New Bag 07/05/2019 8:57 PM CDT 1,000 mL 125 mL/hr New Bag 07/05/2019 1:27 PM CDT 1,000 mL 125 mL/hr ondansetron (ZOFRAN (PF)) injection 4 mg 4 mg, Slow IV Push, Q6HPRN, Starting 07/04/19 at 1119, Until Discontinued, Routine, Nausea and Vomiting (N/V) pantoprazole (PROTONIX) EC tablet 40 mg Given 07/06/2019 8:10 AM CDT 40 mg 40 mg, Oral, DAILY, First dose on 07/04/19 at 0900, Until Discontinued, Routine Given 07/05/2019 8:23 AM CDT 40 mg Given 07/04/2019 8:50 AM CDT 40 mg Medication Order MAR Action Action Date Dose Rate Site FENTanyl PF (SUBLIMAZE (PF)) Given 07/03/2019 5:33 PM CDT 50 mcg injection 50 mcg 50 mcg, Slow IV Push, ONCE, 1 dose, 07/03/19 at 1830, Routine iohexol (OMNIPAQUE 350 BULK-150 mL) Given 07/03/2019 5:38 PM CDT 120 mL injection 120 mL 120 mL, Intravenous, ONCE, 1 dose, 07/03/19 at 1800, Routine maalox:diphenhydrAMINE:lidocaine2 %viscous Given 07/03/2019 5:45 PM CDT 15 mL 1:1:1: suspension (COMPOUNDED) 15 mL, Oral, ONCE, 1 dose, 07/03/19 at 1745, Routine morpHINE injection 2 mg Given 07/03/2019 9:32 PM CDT 2 mg 2 mg, Slow IV Push, Q4HPRN, Starting 07/03/19 at 1844, Until 07/03/19 at 2359, Routine, Pain (scale 7-10) morpHINE injection 4 mg Given 07/04/2019 8:50 AM CDT 4 mg 4 mg, Slow IV Push, Q3HPRN, Starting 07/04/19 at 0000, Until 07/04/19 at 1759, Routine, Pain (scale 7-10) Given 07/04/2019 4:54 AM CDT 4 mg Given 07/04/2019 12:18 AM CDT 4 mg NaCl 0.9% (NS) bolus infusion New Bag 07/03/2019 4:52 PM CDT 1,000 mL 999 mL/hr 1,000 mL at 999 mL/hr, 1,000 mL, IV Infusion, ONCE, 1 dose, 07/03/19 at 1645, BISHOP documented in this encounter Insurance Payer Benefit Plan / Subscriber ID Effective Dates Phone Address Type Group HIM [id number] 2018-Present PPO [id number] [id number] RACTED documented as of this encounter
[2019-07-27] MEDS ORDERED: Ringers Lactate 1,000 ML IV ONE (09:23)
[2019-07-27] MEDS ORDERED: LIDOCAINE 1% MPF 5 ML VIAL ONE (10:35)
[2019-07-27] MEDS ORDERED: PROPOFOL 200 MG/20 ML VIAL IV ONE (10:35)
[2019-07-27 10:55] VITALS: BP 132/63; TEMP 97.9; O2SAT 96
--- NOTE | 2019-07-27 21:03 | OP ---
Surgeon: James Benavides MD Procedure To Be Performed: Esophagogastroduodenoscopy. Indication For Procedure: Hepatitis C, GERD, and dyspepsia. Plan For Anesthesia: Monitored anesthesia care. Complexity: Average. Technique: After obtaining informed consent from the patient and explaining risks and complications which include, but are not limited to bleeding, infection, perforation, and anesthesia complication, patient was placed in the left lateral position and sedation was given. From then on, the scope was advanced through the mouth and carefully guided up to the second portion of the duodenum. After comp letion of the procedure, the scope and equipment were withdrawn and procedure terminated in a safe ma nner. Findings: Esophagus, no gross lesion seen in the upper and mid esophagus. In the distal esophagus, small hiatal hernia was seen. Also, the Z-line was irregular. Stomach, mild patchy erythema seen in the body and antrum. Biopsies taken. Duodenum, the bulb and second portion appeared normal. Complications: None. Tolerance To Anesthesia: Excellent. Postoperative Diagnoses: Hiatal hernia, rule out Richmond's, gastritis. Plan: Oral PPI once a day. Follow up in the GI clinic in 2 weeks. Await pathology results. US/MODL Voice ID: [id number] Report ID: [id number]
== END 2019-07-27 11:10 | disposition home or self-care (01) ==
LOC: OR 08:20
PROVIDERS: ATTEND Internal Medicine Gastroenterology
PROC: 0DB68ZX Excision of Stomach, Via Natural or Artificial Opening Endoscopic, Diagnostic (ICD-10-PCS; 2019-07-27)
PROC: 0DB58ZX Excision of Esophagus, Via Natural or Artificial Opening Endoscopic, Diagnostic (ICD-10-PCS; principal; 2019-07-27 10:00)
DX: K21.0 Gastro-esophageal reflux disease with esophagitis (principal); K29.50 Unspecified chronic gastritis without bleeding; K44.9 Diaphragmatic hernia without obstruction or gangrene; B18.2 Chronic viral hepatitis C; I10 Essential (primary) hypertension; G47.00 Insomnia, unspecified; G51.0 Bell's palsy; Z83.3 Family history of diabetes mellitus; Z82.49 Family history of ischemic heart disease and other diseases of the circulatory system
CPT/HCPCS: 43239; 88312; 88305; J2704